=== PATIENT | male | born 1955 | race Caucasian/White ===

== ENCOUNTER 2024-03-12 18:02 | Emergency (ER) | payer MEDICARE, OTHER ==
[2024-03-12 20:18] VITALS: BP 115/70; PULSE 67
== END 2024-03-12 20:13 | disposition home or self-care (01) ==
LOC: JD.ED 18:02
DX: R07.81 Pleurodynia (principal); Z79.899 Other long term (current) drug therapy
CPT/HCPCS: 71101-26-LT; 71101-LT; 99282; 99284